=== PATIENT | female | born 1965 | race Caucasian/White ===

== ENCOUNTER → 2017-07-24 | Day surgery (SDC) | payer OTHER ==
[~2017-07-24] VITALS: Ht 152.4 cm; Wt 46.3 kg
[~2017-07-24] MED LIST: 0.9% Sodium Chloride 1,000 ML IV ONE; 0.9% Sodium Chloride 1,000 ML IV SCH; ACYC400T2 PO; Sodium Chloride LOK Flush 10 mL Syringe IV PRN; fentaNYL-PF 50 mCg/mL 2 mL Inj IVPUSH PRN
[2017-07-24 12:29] VITALS: BP 113/74; PULSE 64; RESP 12; O2SAT 99
[2017-07-24 13:04] VITALS: BP 102/61; PULSE 72; RESP 14; O2SAT 98
[2017-07-24 13:14] VITALS: BP 85/56; PULSE 62; RESP 16; O2SAT 99
[2017-07-24 13:17] VITALS: BP 102/65; PULSE 61; RESP 16
--- NOTE | 2017-07-25 05:44 | ENDO ---
[address] [address] ENDOSCOPY PROCEDURE PATIENT: TASIA GERBER : 1965 MR#: [id number] ADMIT: 07/24/2017 JOB ID: [id number] DATE OF SERVICE: 07/24/2017 PRIMARY PROVIDER: Patito Zimmerman MD PROCEDURE: Colonoscopy. INDICATIONS: A 52-year-old female who reports for colon cancer screening. EQUIPMENT: PCF-H180AL SEDATION: 1. Versed 3 mg. 2. Fentanyl 75 mcg. COMPLICATIONS: None identified. BOWEL PREPARATION: Very adequate. PROCEDURE INFO: After the risks and benefits were explained, written and verbal informed consent was obtained. The patient was brought into the endoscopy suite and placed into the left lateral decubitus position. Sedation was achieved using the above-stated medications with the addition of oxygen via nasal cannula. A digital rectal examination was accomplished. No significant pathology appreciated. The scope was introduced into the rectum and advanced under direct visualization to the level of the cecum, as identified by the appendiceal orifice and ileocecal valve. The scope was slowly withdrawn to carefully examine the mucosa for any defects or lesions. Retroflexed views were avoided in the rectum. Multiple direct views were made through the dentate line for exclusion of pathology. The colon was decompressed. The scope removed from the patient who tolerated the procedure well. FINDINGS: No significant polyps, mass lesions, or inflammatory features identified throughout. ENDOSCOPIC DIAGNOSES: Visually unremarkable colonoscopy to cecum. RECOMMENDATIONS: Repeat colonoscopy in 10 years' time, sooner should symptoms warrant.
== END | disposition home or self-care (01) ==
LOC: END 01:18
PROVIDERS: ATTEND Internal Medicine Gastroenterology
DX: Z12.11 Encounter for screening for malignant neoplasm of colon (principal); Z86.69 Personal history of other diseases of the nervous system and sense organs
CPT/HCPCS: G0121; G0500; J2250; J3010; J7030